=== PATIENT | male | born 1975 | race Caucasian/White ===

== ENCOUNTER 2022-07-03 16:46 | Emergency (ER) | payer OTHER ==
[~2022-07-03] VITALS: Ht 182.9 cm; Wt 77.3 kg
[2022-07-03 18:11] VITALS: BP 143/92; PULSE 92; TEMP 98.4
== END 2022-07-03 18:14 | disposition home or self-care (01) ==
LOC: COL.ER 16:46
DX: L02.611 Cutaneous abscess of right foot (principal); L03.115 Cellulitis of right lower limb; Z28.310 Unvaccinated for COVID-19